=== PATIENT | female | born 1965 | race Caucasian/White ===

== ENCOUNTER → 2017-01-13 10:30 | Outpatient (CLI) | payer OTHER | END | disposition home or self-care (01) | LOC: D.CT 10:30 | DX: R10.9 Unspecified abdominal pain (principal) ==

== ENCOUNTER → 2017-02-25 16:51 | Outpatient (CLI) | payer OTHER | END | disposition home or self-care (01) | LOC: D.MAMMO 02-23 15:45 | DX: Z12.31 Encounter for screening mammogram for malignant neoplasm of breast (principal) ==

== ENCOUNTER → 2018-03-09 12:23 | Outpatient (CLI) | payer OTHER | END | disposition home or self-care (01) | LOC: D.US 12:23 | DX: N95.0 Postmenopausal bleeding (principal) ==

== ENCOUNTER → 2018-03-22 08:38 | Outpatient (CLI) | payer OTHER | END | disposition home or self-care (01) | LOC: D.MRI 08:38 | DX: R19.09 Other intra-abdominal and pelvic swelling, mass and lump (principal) ==

== ENCOUNTER 2020-12-04 14:35 | Outpatient (CLI) | payer OTHER | END 2020-12-04 23:59 | disposition home or self-care (01) | LOC: D.MAMMO 14:35 | PROVIDERS: ATTEND Nurse Practitioner Family | DX: Z12.31 Encounter for screening mammogram for malignant neoplasm of breast (principal) ==